=== PATIENT | female | born 1955 | race Caucasian/White ===

== ENCOUNTER 2021-01-08 12:01 | Inpatient (IN) | payer MEDICARE ==
[~2021-01-08] VITALS: Ht 172.7 cm; Wt 150.6 kg
[2021-01-08 14:39] LABS: BASOPHILS ABSOLUTE AUTO 0.03 K/mm3 (0.00-0.23); BASOPHILS PERCENT AUTO 0 % (0-2); EOSINOPHILS ABSOLUTE AUTO 0.05 K/mm3 (0.00-0.68); EOSINOPHILS PERCENT AUTO 0 % (0-6); Hemoglobin 11.1 g/dL (11.5-16.0); IMMATURE GRAN ABSOLUTE AUTO 0.16 K/mm3 (0.00-0.10); IMMATURE GRAN PERCENT AUTO 1 % (0-1); LYMPHOCYTES ABSOLUTE AUTO 0.65 K/mm3 (0.84-5.20); LYMPHOCYTES PERCENT AUTO 4 % (21-46); MONOCYTES ABSOLUTE AUTO 1.56 K/mm3 (0.16-1.47); MONOCYTES PERCENT AUTO 10 % (4-13); Mean Corpuscular HGB 27.9 pg (26.0-34.0); Mean Corpuscular HGB Conc 31.7 g/dL (31.5-36.5); Mean Corpuscular Volume 88 fL (80-100); Mean Platelet Volume 10.8 fL (9.1-12.4); NEUTROPHILS ABSOLUTE AUTO 14.01 K/mm3 (1.96-9.15); NEUTROPHILS PERCENT AUTO 85 % (41-73); Platelet Count 221 K/mm3 (150-400); RDW Coefficient Variation 14.6 % (11.7-14.2); RDW Standard Deviation 47.6 fL (35.1-46.3); Red Blood Cell Count 3.98 M/mm3 (3.80-5.20); White Blood Cell Count 16.46 K/mm3 (4.00-11.30)
[2021-01-08 14:41] LABS: Albumin, Blood 2.6 g/dL (3.4-5.0); Albumin/Globulin Ratio 0.6 (0.8-1.8); Bilirubin, Total 0.9 mg/dL (0.1-1.0); Bun/Creatinine Ratio 23.8 (12.0-20.0); Calcium, Blood 8.7 mg/dL (8.5-10.1); Creatinine, Blood 1.01 mg/dL (0.40-1.00); Globulin, Blood 4.1 g/dL (2.2-4.0); Potassium, Blood 3.6 mmol/L (3.5-5.5); Total Protein, Blood 6.7 g/dL (6.4-8.2)
[2021-01-08] MEDS ORDERED: BUPROPION HCL200 M1 PO (15:04)
[2021-01-08] MEDS ORDERED: CITALOPRAM HBR20 M2 PO (15:04)
[2021-01-08] MEDS ORDERED: ARIPIPRAZOLE10 M1 PO (15:04)
[2021-01-08] MEDS ORDERED: Simvastatin10 MG PO (15:04)
[2021-01-08] MEDS ORDERED: SULFAMETHOXAZO1 EAC1 PO (15:04)
[2021-01-08] MEDS ORDERED: LAMOTRIGINE100 M1 PO (15:04)
[2021-01-08] MEDS ORDERED: XARELTO20 M1 PO (15:05)
[2021-01-08] MEDS ORDERED: SPIRONOLACTONE25 MG PO (15:05)
[2021-01-08] MEDS ORDERED: REPATHA SY140 MG/1 M SC (15:05)
[2021-01-08] MEDS ORDERED: Toprol Xl200 MG PO (15:05)
[2021-01-08] MEDS ORDERED: FUROSEMIDE20 MG PO (15:05)
[2021-01-08] MEDS ORDERED: KLOR-CON 1010 ME2 PO (15:06)
[2021-01-08 15:08] LABS: SARS-Cov-2 (COVID-19) PCR, MMC NEGATIVE (NEGATIVE)
[2021-01-09 03:57] LABS: BASOPHILS ABSOLUTE AUTO 0.03 K/mm3 (0.00-0.23); BASOPHILS PERCENT AUTO 0 % (0-2); EOSINOPHILS PERCENT AUTO 0 % (0-6); Hematocrit 32.7 % (33.0-51.0); IMMATURE GRAN ABSOLUTE AUTO 0.14 K/mm3 (0.00-0.10); IMMATURE GRAN PERCENT AUTO 1 % (0-1); LYMPHOCYTES ABSOLUTE AUTO 0.63 K/mm3 (0.84-5.20); LYMPHOCYTES PERCENT AUTO 5 % (21-46); MONOCYTES ABSOLUTE AUTO 0.74 K/mm3 (0.16-1.47); MONOCYTES PERCENT AUTO 5 % (4-13); Mean Corpuscular HGB 27.3 pg (26.0-34.0); Mean Corpuscular HGB Conc 30.6 g/dL (31.5-36.5); Mean Corpuscular Volume 89 fL (80-100); Mean Platelet Volume 10.4 fL (9.1-12.4); NEUTROPHILS ABSOLUTE AUTO 12.43 K/mm3 (1.96-9.15); NEUTROPHILS PERCENT AUTO 89 % (41-73); Platelet Count 229 K/mm3 (150-400); RDW Coefficient Variation 14.9 % (11.7-14.2); RDW Standard Deviation 48.4 fL (35.1-46.3); Red Blood Cell Count 3.66 M/mm3 (3.80-5.20); White Blood Cell Count 13.97 K/mm3 (4.00-11.30)
[2021-01-09 04:13] LABS: Anion Gap 4 mmol/L (6-16); Blood Urea Nitrogen 22 mg/dL (8-24); Bun/Creatinine Ratio 24.7 (12.0-20.0); CO2, Blood 28 mmol/L (21-32); Calcium, Blood 8.1 mg/dL (8.5-10.1); Chloride, Blood 103 mmol/L (98-108); Creatinine, Blood 0.89 mg/dL (0.40-1.00); Glomerular Filtration Rate >60 (60-); Glucose, Blood 186 mg/dL (70-99); Magnesium, Blood 2.3 mg/dL (1.6-2.4); Potassium, Blood 4.1 mmol/L (3.5-5.5); Sodium, Blood 135 mmol/L (136-145)
--- NOTE | 2021-01-09 05:49 | NUR ---
PT ADMITTED FROM PACU. PLEASANT/COOPERATIVE. NO REQUIREMENTS FOR BIPAP. VSS. TOLERATING IV ABX WELL W/ NO ADVERSE EFFECTS. PACKING IN PLACE FROM SURGERY. PT DENIES PAIN T/O NOC. ASSISTIVE W/ REPOSITIONING. CONCERNS REGARDING NEED FOR POSSIBLE FURTHER SURGERIES. CALL LIGHT WITHIN REACH.
--- NOTE | 2021-01-09 08:30 | NUR ---
SHIFT SUMMARY PT ALERT AND ORIENTED X 4. SHE WAS PLEASANT AND COOPERATIVE W/ CARE. VITAL SIGNS AT 0827 WERE FOLLOWS; BP 113/64, HR 88, RR 16, SPO2 95 ON ROOM AIR. PATIENT STATED THAT WOUND ON LOUANN AREA WAS AT 3/10 PAIN AND OCCURED UPON MOVEMENT. REDNESS NOTED UNDER SKIN FOLDS ON LOWER ABDOMEN; SKIN IS DRY/INTACT. LEFT EYELID DROOP NOTED. PERIPHERAL IV ACCESS IS IN RIGHT ARM. IV IS PATENT AND FLUSHED W/ 10ML SALINE. BED IN LOW, BED ALARM ON, CALL LIGHT IN REACH.
--- NOTE | 2021-01-09 14:30 | NUR ---
THIS RN HAS REVIEWED THE SPENCER, THE NURSING STUDENTS DOCUMENTATION AND AM IN AGREEMENT. DR FRANKLIN AT BEDSIDE THIS AM AND CHANGED TO PACKING AND ABD PAD. NEW ORDERS TO D/C IV FLUIDS AND TRANSFER TO SURGICAL UNIT WITH TELE. REPORT GIVEN TO SURYA HENDERSON ASSUMING CARE OF PT. PT LEFT ROOM AT 1430.
--- NOTE | 2021-01-09 16:08 | NUR ---
ASSUMING CARE PATIENT A TRANSFER TO UNIT FROM PCU. POD 1 I&D LEFT LABIA, FOURNIERS GANGRENE. SCHMITZ IN PLACE. DRESSING IN PLACE. PLAN TO RETURN TO OR WITH DR FRANKLIN ON 01/10/2021 FOR REPEAT I&D. PATIENT ALERT AND ORIENTED. TOLERATING REGULAR DIET. WILL BE NPO AFTER MIDNIGHT.
--- NOTE | 2021-01-09 17:10 | NUR ---
SHIFT SUMMARY PATIENT ALERT AND ORIENTED. RESTING IN BED AT THIS TIME. TOLERATING REGULAR DIET. DENIES PAIN. SCHMITZ INTACT. NPO AT MIDNIGHT FOR I&D TOMORROW. WILL REPORT TO RETAIL LOAN ORIGINATOR ASSISTANT RN.
--- NOTE | 2021-01-10 06:35 | NUR ---
SHIFT SUMMARY LYING IN LOW FOWLERS WITH EYES CLOSED, HAS RESTED WELL THIS SHIFT. AAO X4, ANDREWS, FOLLOWS ALL COMMANDS. GIVE PRN PAIN MEDS PER EMAR. SCHMITZ REMAINS IN PLACE. DRESSING TO GROIN/PERIAREA REMAINS INTACT. HAS BEEN NPO SINCE MO FOR 2ND I&D THIS AM. LEFT AC 18G PIV IS PATENT, INFUSING NS AT TKO. NO SIGNIFICANT CHANGES NOTED THIS SHIFT. DENIES PAIN, DISCOMFORT, OR FURTHER NEEDS AT THIS TIME. SAFETY MEASURES IN PLACE. WILL CONTINUE TO MONITOR AND ADDRESS CHANGES AND NEEDS THEY ARISE. WILL GIVE HAND OFF TO ONCOMING SHIFT USING SBAR DURING BEDSIDE REPORT.
--- NOTE | 2021-01-10 06:55 | NUR ---
V TACH 7 BEAT RUN OF V TACH REPORTED BY ELIZABETH LAKE. PT IS RESTING WITH EYES CLOSED. DENIES ANY PAIN OR DISCOMFORT. SAFETY MEASURES IN PLACE. WILL CONTIUE TO MONITOR AND ADDRESS CHANGES AND CONCERNS THEY ARISE.
--- NOTE | 2021-01-10 08:11 | NUR ---
PT LEFT FOR UR WITH PREOP NURSES. METOPROLOL HELD PER ANESTHESIA ACCORDING TO PREOP NURSES.
--- NOTE | 2021-01-10 09:08 | NUR ---
01/10/21 0908 NELLNORA MURPHY PT RECEIVED SCHEDULED DOSE OF ANTIBIOTICS PRIOR TO PROCEDURE PER DR ORDERS.
--- NOTE | 2021-01-10 11:57 | NUR ---
0735-recvd report from previous shift rn Josi, pt awake/oriented, lying in bed which is in lowest position, call light within reach, bed rails up x 2, denies pain at this time. 0800-pt transported on own bed to daysurgery for surgical intervention 1100-pt transported back to room on own bed, a/o x 4, pleasant/cooperative, denies pain, states to "soreness", denies need for analgesia per mar at this time. post op vs commenced and stable, 6l NC with spo2 at 100%, decrease to 2l at 96%, will reevaluate in one hr. operative site L labia with gauze and abd dressing, will change as needed. RICK drain not compressed, per MD this is expected as drain is place where tissue is not completely closed, has gauze packing. pt tolerating PO intake, denies n/v, has call family
--- NOTE | 2021-01-10 18:24 | NUR ---
SHIFT SUMMARY; VSS, NO ACUTE CHANGES THIS SHIFT. FOLLOWING I&D OF R LABIA WOUND, PT HAS TOLERATED PO INTAKE WELL WITH NO N/V REPORT. PT DENIES NEED FOR PAIN MEDICATION ON PAIN ASSESSMENTS. SCHMITZ CATHETER PATENT/DRAINING CLEAR TEA URINE. ENCOURAGED PT TO INCREASED FLUIDS INTAKE. PT STOOD AND WALKED AROUND ROOM. DRESSING LAST PUTTER AWAY WOUND R LABIA, OPEN FOLLOWIGN PROCEDURE WITH DRAIN WICK. DR FRANKLIN WILL REMOVE TOMORROW. KERLEX GAUZE AND IODIFORM PLACE OVER WOUND.
[2021-01-11 05:13] LABS: BASOPHILS ABSOLUTE AUTO 0.03 K/mm3 (0.00-0.23); BASOPHILS PERCENT AUTO 0 % (0-2); EOSINOPHILS ABSOLUTE AUTO 0.07 K/mm3 (0.00-0.68); EOSINOPHILS PERCENT AUTO 1 % (0-6); Hematocrit 31.2 % (33.0-51.0); Hemoglobin 9.5 g/dL (11.5-16.0); IMMATURE GRAN PERCENT AUTO 1 % (0-1); LYMPHOCYTES ABSOLUTE AUTO 1.47 K/mm3 (0.84-5.20); LYMPHOCYTES PERCENT AUTO 19 % (21-46); MONOCYTES ABSOLUTE AUTO 0.81 K/mm3 (0.16-1.47); MONOCYTES PERCENT AUTO 11 % (4-13); Mean Corpuscular HGB 28.2 pg (26.0-34.0); Mean Corpuscular HGB Conc 30.4 g/dL (31.5-36.5); Mean Corpuscular Volume 93 fL (80-100); Mean Platelet Volume 9.7 fL (9.1-12.4); NEUTROPHILS ABSOLUTE AUTO 5.21 K/mm3 (1.96-9.15); NEUTROPHILS PERCENT AUTO 68 % (41-73); Platelet Count 236 K/mm3 (150-400); RDW Coefficient Variation 15.1 % (11.7-14.2); RDW Standard Deviation 51.1 fL (35.1-46.3); Red Blood Cell Count 3.37 M/mm3 (3.80-5.20); White Blood Cell Count 7.69 K/mm3 (4.00-11.30)
[2021-01-11 05:37] LABS: Anion Gap 4 mmol/L (6-16); Blood Urea Nitrogen 22 mg/dL (8-24); Bun/Creatinine Ratio 25.1 (12.0-20.0); CO2, Blood 29 mmol/L (21-32); Calcium, Blood 8.4 mg/dL (8.5-10.1); Chloride, Blood 105 mmol/L (98-108); Creatinine, Blood 0.88 mg/dL (0.40-1.00); Glomerular Filtration Rate >60 (60-); Glucose, Blood 96 mg/dL (70-99); Magnesium, Blood 2.3 mg/dL (1.6-2.4); Phosphorus, Blood 3.4 mg/dL (2.5-4.9); Potassium, Blood 4.1 mmol/L (3.5-5.5); Sodium, Blood 138 mmol/L (136-145)
--- NOTE | 2021-01-11 05:51 | NUR ---
A/OX4. VSS ON RA. LABIAL DRESSING CHANGED AFTER PT HAD BM. TYLENOL GIVEN FOR DISCOMFORT. DENIES SOB AND CP. SINUS TACH ON TELE. AMBULATED TO TOILET W/ FWW. SLEEPING B/W CARE. USING CALL LIGHT TO MAKE NEEDS KNOWN.
--- NOTE | 2021-01-11 13:16 | NUR ---
01/11/21 1316 Keena Cruz VERIFICATIONS: EDIT CHART.
--- NOTE | 2021-01-11 18:28 | NUR ---
SHIFT SUMMARY S/P I&D OF R LABIA. PACKED W/ SILVER Ag. & KERLEX W/ ABD COVERING. RICK TO LOWER R LABIA DRAINING SANG FLUID. SCHMITZ IN PLACE AND DRAINING DARK YELLOW URINE. VSS, PT UP TO CHAIR AND AMBULATING WELL T/O SHIFT, COOPERATIVE W/ STAFF. CALL LIGHT IN REACH, WILL CONTINUE TO MONITOR.
--- NOTE | 2021-01-12 00:22 | NUR ---
PT CALLED STATING THAT HER IV WAS "ITCHING". UPON EXAMINATION, A SMALL, CIRCULAR RAISED SPOT WAS VISUALIZED ON HER LEFT INNER WRIST, MILDLY ERYTHEMATOUS. SHE STATED THAT IT WAS ITCHY, BUT DENIED ANY TOPICAL ALLERGIES. THE AREA WAS CLEANSED AND THE IV DRESSING CHANGED.
--- NOTE | 2021-01-12 06:47 | NUR ---
SHIFT SUMMARY: DAVIE IS A&OX4. VSS, NO ACUTE EVENTS OVERNIGHT. OUTER LAYER OF DRESSING CHANGED. RICK DRAINING SMALL AMOUNT OF SS FLUID. SCHMITZ PATENT. SHE IS TOLERATING PO INTAKE WELL, USES THE CALL LIGHT APPROPRIATELY. IV X 2 PATENT. SHE REPORTS ADEQUATE PAIN CONTROL WHEN LAYING, STATES THAT SITTING UP IN THE CHAIR IS VERY PAINFUL. SHE IS LAYING IN BED WITH THE CALL LIGHT IN REACH. WILL REPORT TO DAY SHIFT RN.
--- NOTE | 2021-01-12 17:05 | NUR ---
SHIFT SUMMARY S/P I&D OF R LABIA. SILVER Ag. & KERLEX PACKING IN PLACE W/ ABD COVERING. RICK DRAIN, DRAINING BRIGHT RED. SCHMITZ IN PLACE DRAINING DARK YELLOW URINE. VSS. PT IS AMBULATING TO BATHROOM AND HALLWAYS WELL. REPORTS MINIMAL PAIN T/O SHIFT EXCEPT PAINFUL WHEN SITTING UP & DURING DRSG CHANGE. CALL LIGHT WITHIN REACH, WILL CONTINUE TO MONITOR.
--- NOTE | 2021-01-13 07:17 | NUR ---
SUMMARY NO ACUTE CHANGES.MINIMAL DISCOMFORT REPORTED.
[2021-01-13 16:08] LABS: SARS-Cov-2 (COVID-19) PCR, MMC NEGATIVE (NEGATIVE)
--- NOTE | 2021-01-13 16:30 | NUR ---
TRANSFER TO SNF: REPORT GIVEN TO RNRYAN AT [facility] AT THIS TIME. WOUND CARE INSTRUCTIONS GIVEN. RICK SCHMITZ DRAIN AND IV'S TO STAY IN PLACE UPON TRANSFER PER DR. FRANKLIN AND DR. ORANTES. AWAITING TRANSPORT AT THIS TIME
--- NOTE | 2021-01-13 18:09 | NUR ---
TRANSFER: [facility] TRANSP[facility] HERE AT 1805, DISCHARGE PACKET GIVEN TO TRANSPORTER AND PT LEFT VIA WHEELCHAIR AT ABOUT 1810
== END 2021-01-13 18:06 | DRG 854 ==
LOC: ER 12:01 → SURS 16:08 → PCU 19:47 → SURS 01-09 16:03
PROVIDERS: Internal Medicine; Physician Assistant; Surgery; ADMIT Internal Medicine
PROC: 0JBB0ZZ Excision of Perineum Subcutaneous Tissue and Fascia, Open Approach (ICD-10-PCS; principal; 2021-01-08 16:30)
DX: A41.9 Sepsis, unspecified organism (principal); I42.2 Other hypertrophic cardiomyopathy; Z68.43 Body mass index [BMI] 50.0-59.9, adult; Z20.822 Contact with and (suspected) exposure to COVID-19; N76.89 Other specified inflammation of vagina and vulva; R65.20 Severe sepsis without septic shock; I10 Essential (primary) hypertension; I48.91 Unspecified atrial fibrillation; F32.9 Major depressive disorder, single episode, unspecified; F41.9 Anxiety disorder, unspecified; E78.5 Hyperlipidemia, unspecified; E66.01 Morbid (severe) obesity due to excess calories; Z90.710 Acquired absence of both cervix and uterus; Z98.890 Other specified postprocedural states; Z88.1 Allergy status to other antibiotic agents; Z79.01 Long term (current) use of anticoagulants; Z79.899 Other long term (current) drug therapy
CPT/HCPCS: 36415; 74177; 80048; 80053; 83605; 83735; 84100; 84443; 85025; 86850; 86900; 86901; 87040; 87070; 87075; 87205; 93005; 93010; 94660; 94762; 96365-59; 96367; 97110; 97116; 97162; 97166; 97530; 97535; 99285-25; A9270; J0330; J1100; J1650; J1885; J2405; J2543; J2704; J3010; J3370; J7030; J7050; J7120; Q9967; U0004

== ENCOUNTER → 2021-03-21 | Outpatient (CLI) | payer MEDICARE ==
[~2021-03-21] MED LIST: ARIPIPRAZOLE10 M1 PO; BUPROPION HCL200 M1 PO; CITALOPRAM HBR20 M2 PO; FUROSEMIDE20 MG PO; KLOR-CON 1010 ME2 PO; LAMOTRIGINE100 M1 PO; REPATHA SY140 MG/1 M SC; SPIRONOLACTONE25 MG PO; SULFAMETHOXAZO1 EAC1 PO; Simvastatin10 MG PO; Toprol Xl200 MG PO; XARELTO20 M1 PO
[2021-03-22 15:08] LABS: HPV 16 Negative (Negative); HPV 18 Negative (Negative); HPV OTHER HR TYPES Negative (Negative)
== END | disposition home or self-care (01) ==
LOC: LAB 10:30 → LAB SHORT 10:30
PROVIDERS: Family Medicine
DX: Z01.419 Encounter for gynecological examination (general) (routine) without abnormal findings (principal); Z88.1 Allergy status to other antibiotic agents
CPT/HCPCS: 87624; G0123

== ENCOUNTER 2021-08-23 15:40 | Inpatient (IN) | payer MEDICARE, OTHER ==
[~2021-08-23] VITALS: Ht 172.7 cm; Wt 158.8 kg
[2021-08-23 16:41] LABS: BASOPHILS ABSOLUTE AUTO 0.05 K/mm3 (0.00-0.23); BASOPHILS PERCENT AUTO 1 % (0-2); EOSINOPHILS PERCENT AUTO 1 % (0-6); Hematocrit 41.5 % (33.0-51.0); Hemoglobin 12.2 g/dL (11.5-16.0); IMMATURE GRAN ABSOLUTE AUTO 0.02 K/mm3 (0.00-0.10); IMMATURE GRAN PERCENT AUTO 0 % (0-1); LYMPHOCYTES ABSOLUTE AUTO 0.57 K/mm3 (0.84-5.20); LYMPHOCYTES PERCENT AUTO 7 % (21-46); MONOCYTES PERCENT AUTO 12 % (4-13); Mean Corpuscular HGB 25.6 pg (26.0-34.0); Mean Corpuscular HGB Conc 29.4 g/dL (31.5-36.5); Mean Corpuscular Volume 87 fL (80-100); Mean Platelet Volume 10.4 fL (9.1-12.4); NEUTROPHILS ABSOLUTE AUTO 6.67 K/mm3 (1.96-9.15); NEUTROPHILS PERCENT AUTO 79 % (41-73); Platelet Count 196 K/mm3 (150-400); RDW Coefficient Variation 17.1 % (11.7-14.2); RDW Standard Deviation 54.3 fL (35.1-46.3); Red Blood Cell Count 4.76 M/mm3 (3.80-5.20); White Blood Cell Count 8.41 K/mm3 (4.00-11.30)
[2021-08-23 17:10] LABS: Albumin, Blood 3.5 g/dL (3.4-5.0); Albumin/Globulin Ratio 1.2 (0.8-1.8); Bilirubin, Total 1.6 mg/dL (0.1-1.0); Bun/Creatinine Ratio 23.4 (12.0-20.0); Calcium, Blood 8.7 mg/dL (8.5-10.1); Creatinine, Blood 1.07 mg/dL (0.40-1.00); Globulin, Blood 2.9 g/dL (2.2-4.0); Total Protein, Blood 6.4 g/dL (6.4-8.2)
[2021-08-23 22:07] LABS: Troponin I 0.053 ng/mL (0.000-0.040)
[2021-08-23 23:40] LABS: CHOL/HDL RATIO 2.3; Cholesterol 126 mg/dL (50-200); HDL Cholesterol 55 mg/dL (>39); Low Density Lipoprotein Chol 53 mg/dL (0-110); Triglycerides 90 mg/dL (30-160); Very Low Density Lipoprot Chol 18 mg/dL (6-32)
[2021-08-24 04:37] LABS: BASOPHILS ABSOLUTE AUTO 0.05 K/mm3 (0.00-0.23); BASOPHILS PERCENT AUTO 1 % (0-2); EOSINOPHILS ABSOLUTE AUTO 0.09 K/mm3 (0.00-0.68); EOSINOPHILS PERCENT AUTO 1 % (0-6); Hematocrit 38.4 % (33.0-51.0); Hemoglobin 11.1 g/dL (11.5-16.0); IMMATURE GRAN ABSOLUTE AUTO 0.01 K/mm3 (0.00-0.10); IMMATURE GRAN PERCENT AUTO 0 % (0-1); LYMPHOCYTES ABSOLUTE AUTO 0.94 K/mm3 (0.84-5.20); LYMPHOCYTES PERCENT AUTO 15 % (21-46); MONOCYTES ABSOLUTE AUTO 1.06 K/mm3 (0.16-1.47); MONOCYTES PERCENT AUTO 16 % (4-13); Mean Corpuscular HGB 25.4 pg (26.0-34.0); Mean Corpuscular HGB Conc 28.9 g/dL (31.5-36.5); Mean Corpuscular Volume 88 fL (80-100); Mean Platelet Volume 10.2 fL (9.1-12.4); NEUTROPHILS ABSOLUTE AUTO 4.33 K/mm3 (1.96-9.15); NEUTROPHILS PERCENT AUTO 67 % (41-73); Platelet Count 178 K/mm3 (150-400); RDW Coefficient Variation 17.1 % (11.7-14.2); RDW Standard Deviation 54.6 fL (35.1-46.3); Red Blood Cell Count 4.37 M/mm3 (3.80-5.20); White Blood Cell Count 6.48 K/mm3 (4.00-11.30)
[2021-08-24 05:05] LABS: Albumin, Blood 3.1 g/dL (3.4-5.0); Albumin/Globulin Ratio 1.1 (0.8-1.8); Bilirubin, Total 1.5 mg/dL (0.1-1.0); Bun/Creatinine Ratio 21.8 (12.0-20.0); Calcium, Blood 8.7 mg/dL (8.5-10.1); Creatinine, Blood 1.1 mg/dL (0.40-1.00); Globulin, Blood 2.9 g/dL (2.2-4.0); Potassium, Blood 3.7 mmol/L (3.5-5.5)
--- NOTE | 2021-08-24 06:11 | NUR ---
PATIENT A&O X4. POOR HISTORIAN. NEEDS EDUCATION ON DIET AND MEDICAL CONDITIONS. PATIENTS SKIN FOLDS ARE RED AND RAW UNDER BREASTS, IN GROIN, AND UNDER ABDOMINAL PANNUS. PATIENTS LOWER EXTREMITIES ARE DISCOLORED AND EDEMETOUS. PATIENT CAN AMBULATE BUT IS WEAK AND SLOW. HAS HAD SEVERAL FALLS AT HOME. VITALS REVIEWED CALL LIGHT IN REACH.
--- NOTE | 2021-08-24 18:41 | NUR ---
SUMMARY- PT ALERT/O X3 THIS AM. PM BECAME CONFUSED AFTER AWAKING FROM [facility] AND THOUGHT IT WAS THE MORNING. DIURESING TODAY, HAD LG VOIDS, X2 INCONT RELATED TO URGENCY. PT TOLERATING FOOD AND FLUIDS. GLUCOSE CHECKS AND COVERAGE WITH SSRI. GOT UP TO BSC INDEPENDANT AND AMBULATED IN ROOM SBA GOOD STRENGTH AND GAIT. PLAN TO DC HOME WITH HH AND BATH AID. YEAST UNDER L BREAST FIREY RED AND EXCORIATED. L AXILLA AND GROIN, FOUL SMELLING AND POOR HYGIENE, CLEANSED, APPLIED CLOTRIAMAZOLE CREAM TO RED RASHED AREAS..
--- NOTE | 2021-08-25 04:55 | NUR ---
PATIENT WAS AWAKE AT START OF SHIFT. SHE REPORTED THAT SHE HAD BEEN GIVEN LASIX AND HAD TO HAVE HER BED CHANGED SEVERAL TIMES. i REASSURED THE PATIENT THAT WE DIDN'T MIND HELPING TAKE CARE OF HER. CLEASED SKIN FOLDS AND APPLIED CLOTRIMAZOLE CREAM. DISCUSSED DISCHARGE PLAN FOR TOMMORROW. VITALS REVIEWED CALL LIGHT IN REACH.
[2021-08-25 05:15] LABS: Bun/Creatinine Ratio 21.1 (12.0-20.0); Calcium, Blood 8.9 mg/dL (8.5-10.1); Potassium, Blood 3.7 mmol/L (3.5-5.5)
--- NOTE | 2021-08-25 19:28 | NUR ---
SUMM- PT AMBULATES TO COMMODE AND BATHROOM SBA WITH WALKER. STEADY ON FEET WITH GOOD STRENGTH. BED BATH TODAY WITH THOROUGH CLEANSING OF SKIN FOLDS. NYSTATIN TO REDDENED YEAST AREAS. TOLERATING CARDIAC DIET AND FLUID RESTRICTION DIET. DIURESING WITH IV LASIX. OCC STRESS INCONT. PLAN FOR HOME TOMORROW WITH BATH AID AND HOME CONT CASE MAN ASSIST.
--- NOTE | 2021-08-26 | NUR ---
PT RESTING QUIETLY AT THIS TIME. NO NEEDS AT THIS TIME. CALL LT IN REACH.
--- NOTE | 2021-08-26 03:55 | NUR ---
SHIFT SUMMARY: MEDICATED PT WITH TYLENOL ONCE FOR LEFT HIP PAIN. PT DIURESING WELL, UP TO THE BSC WITH FWW AND SBA T/O SHIFT. A/O AND PLEASANT. ON RA. ANTIFUNGAL CREAM APPLIED TO PANNUS, UNDER BREASTS, LEFT AXILLA AND GROIN AREA, NO FOUL ODOR PRESENT, AREAS ARE RED,MOIST AND HEALING. NO ACUTE CHANGES. WILL CONTINUE TO PROVIDE CARE UNTIL SHIFT REPORT.
[2021-08-26 05:52] LABS: Bun/Creatinine Ratio 19.6 (12.0-20.0); Calcium, Blood 8.9 mg/dL (8.5-10.1); Creatinine, Blood 1.12 mg/dL (0.40-1.00)
[2021-08-26] MEDS ORDERED: FURO40 PO (13:38)
--- NOTE | 2021-08-26 16:22 | NUR ---
PT AWAKE AT START OF SHIFT. PLEASANT AND CO-OP WITH CARE. A&O, [facility]. PT HAS SOME INCONTINENCE OF URINE WITH URGENCY. MORBIDLY OBESE, BUT NORMALLY INDEPENDENT AT HOME. ADMITTED FOR CHF AND C/O SOB WITH ACTIVITY. PT REPORTED BREATHING MUCH BETTER AFTER LASIX. PT MEDICALLY STABLE FOR D/C. HOME O2 EVAL DONE; PT NOT NEEDING O2. D/C ORDERS PLACED, INSTRUCTIONS REVIEWED WITH PT. MEDS FAXED TO [facility] PER PT REQUEST. NO C/O. PT ASSISTED OUT TO CAR VIA W/C, BELONGINGS IN HAND.
== END 2021-08-26 14:27 | disposition home health service (06) | DRG 280 ==
LOC: ER 15:40 → MEDS 23:37 → ERHOLD 23:37 → MEDS 08-24 01:27
PROVIDERS: Family Medicine; Physician Assistant; Student in an Organized Health Care Education/Training Program; ADMIT Family Medicine
DX: I11.0 Hypertensive heart disease with heart failure (principal); I50.31 Acute diastolic (congestive) heart failure; I21.A1 Myocardial infarction type 2; Z68.43 Body mass index [BMI] 50.0-59.9, adult; N17.9 Acute kidney failure, unspecified; F32.A Depression, unspecified; I42.2 Other hypertrophic cardiomyopathy; I73.9 Peripheral vascular disease, unspecified; B37.2 Candidiasis of skin and nail; I27.20 Pulmonary hypertension, unspecified; I48.0 Paroxysmal atrial fibrillation; I87.2 Venous insufficiency (chronic) (peripheral); E66.01 Morbid (severe) obesity due to excess calories; E78.5 Hyperlipidemia, unspecified; Z90.89 Acquired absence of other organs; Z90.710 Acquired absence of both cervix and uterus; Z88.1 Allergy status to other antibiotic agents; Z79.01 Long term (current) use of anticoagulants; Z79.899 Other long term (current) drug therapy; Z23 Encounter for immunization
CPT/HCPCS: 36415; 70450; 71045; 80048; 80053; 80061; 83880; 84484; 85025; 90686; 93005; 93010; 93306; 93925; 93970; 94760; 94761; 96374; 97110; 97162; 97166; 97530; 97535; 99285-25; A9270; G0008; J1940

== ENCOUNTER 2021-09-14 19:55 | Emergency (ER) | payer MEDICARE, OTHER ==
[~2021-09-14] VITALS: Ht 172.7 cm; Wt 149.7 kg
[~2021-09-14 19:55] MED LIST changes: +FURO40 PO; +Robaxin750 MG PO; +TRAM50 PO
[2021-09-14 20:58] LABS: BASOPHILS ABSOLUTE AUTO 0.06 K/mm3 (0.00-0.23); BASOPHILS PERCENT AUTO 1 % (0-2); EOSINOPHILS ABSOLUTE AUTO 0.07 K/mm3 (0.00-0.68); EOSINOPHILS PERCENT AUTO 1 % (0-6); Hematocrit 39.5 % (33.0-51.0); Hemoglobin 11.4 g/dL (11.5-16.0); IMMATURE GRAN ABSOLUTE AUTO 0.03 K/mm3 (0.00-0.10); IMMATURE GRAN PERCENT AUTO 0 % (0-1); LYMPHOCYTES ABSOLUTE AUTO 0.83 K/mm3 (0.84-5.20); LYMPHOCYTES PERCENT AUTO 9 % (21-46); MONOCYTES ABSOLUTE AUTO 1.49 K/mm3 (0.16-1.47); MONOCYTES PERCENT AUTO 16 % (4-13); Mean Corpuscular HGB 25.2 pg (26.0-34.0); Mean Corpuscular HGB Conc 28.9 g/dL (31.5-36.5); Mean Corpuscular Volume 87 fL (80-100); Mean Platelet Volume 10.2 fL (9.1-12.4); NEUTROPHILS ABSOLUTE AUTO 6.92 K/mm3 (1.96-9.15); NEUTROPHILS PERCENT AUTO 74 % (41-73); Platelet Count 255 K/mm3 (150-400); RDW Coefficient Variation 18.6 % (11.7-14.2); RDW Standard Deviation 57.1 fL (35.1-46.3); Red Blood Cell Count 4.52 M/mm3 (3.80-5.20)
[2021-09-14 21:11] LABS: Albumin, Blood 3.4 g/dL (3.4-5.0); Albumin/Globulin Ratio 1.1 (0.8-1.8); Bilirubin, Total 2.4 mg/dL (0.1-1.0); Bun/Creatinine Ratio 23.7 (12.0-20.0); Calcium, Blood 9.4 mg/dL (8.5-10.1); Creatinine, Blood 1.52 mg/dL (0.40-1.00); Globulin, Blood 3.2 g/dL (2.2-4.0); Potassium, Blood 4.3 mmol/L (3.5-5.5); Total Protein, Blood 6.6 g/dL (6.4-8.2)
[2021-09-14 22:16] LABS: Blood, Urine 5+ (Neg); Glucose Qualitative, Urine Neg (Neg); Ketones, Urine 1+ (Neg); Leukocyte Esterase, Urine 2+ (Neg); Nitrite, Urine Pos (Neg); Protein, Urine 3+ (Neg); Source, Urine Straight Cath; Specific Gravity, Urine 1.025 (1.003-1.022); Urobilinogen, Urine 2+ (Normal)
[2021-09-14 23:23] LABS: Bilirubin, Urine 1+ (Neg)
[2021-09-14 23:31] LABS: Appearance, Urine Cloudy (Clear); Color, Urine Amber (P-Yellow)
[2021-09-14 23:33] LABS: Amorphous Light (0-Heavy); Bacteria Many /hpf; Red Blood Cells, Urine TNTC /hpf (0-2); Squamous Epithelial Cells Few /hpf (Few); White Blood Cells, Urine 25-50 /hpf (0-5)
[2021-09-15] MEDS ORDERED: LEVOFLOXACIN250 M1 PO (00:14)
== END 2021-09-15 01:51 | disposition home or self-care (01) ==
LOC: ER 19:55
PROVIDERS: Emergency Medicine
DX: N30.90 Cystitis, unspecified without hematuria (principal); N39.0 Urinary tract infection, site not specified; I48.91 Unspecified atrial fibrillation
CPT/HCPCS: 36415; 71045; 80053; 81001; 85025; 87077; 87086; 87186; 93005; 93010; J1956; J7030; P9612

== ENCOUNTER 2021-12-04 13:57 | Observation (INO) | payer MEDICARE, OTHER ==
[~2021-12-04] VITALS: Ht 172.7 cm; Wt 156.5 kg
[~2021-12-04 13:57] MED LIST changes: +BUPR150ER PO; -BUPROPION HCL200 M1 PO; +DOXY100 PO; +LEVOFLOXACIN250 M1 PO
[2021-12-04 14:35] LABS: BASOPHILS ABSOLUTE AUTO 0.07 K/mm3 (0.00-0.23); BASOPHILS PERCENT AUTO 1 % (0-2); EOSINOPHILS ABSOLUTE AUTO 0.07 K/mm3 (0.00-0.68); EOSINOPHILS PERCENT AUTO 1 % (0-6); Hematocrit 38.8 % (33.0-51.0); IMMATURE GRAN ABSOLUTE AUTO 0.01 K/mm3 (0.00-0.10); IMMATURE GRAN PERCENT AUTO 0 % (0-1); LYMPHOCYTES ABSOLUTE AUTO 0.79 K/mm3 (0.84-5.20); LYMPHOCYTES PERCENT AUTO 12 % (21-46); MONOCYTES ABSOLUTE AUTO 0.93 K/mm3 (0.16-1.47); MONOCYTES PERCENT AUTO 14 % (4-13); Mean Corpuscular HGB Conc 28.4 g/dL (31.5-36.5); Mean Corpuscular Volume 81 fL (80-100); Mean Platelet Volume 10.8 fL (9.1-12.4); NEUTROPHILS ABSOLUTE AUTO 4.85 K/mm3 (1.96-9.15); NEUTROPHILS PERCENT AUTO 72 % (41-73); Platelet Count 188 K/mm3 (150-400); RDW Coefficient Variation 18.8 % (11.7-14.2); RDW Standard Deviation 54.8 fL (35.1-46.3); Red Blood Cell Count 4.78 M/mm3 (3.80-5.20); White Blood Cell Count 6.72 K/mm3 (4.00-11.30)
[2021-12-04 14:53] LABS: Albumin, Blood 3.4 g/dL (3.4-5.0); Bilirubin, Total 1.5 mg/dL (0.1-1.0); Bun/Creatinine Ratio 19.3 (12.0-20.0); Calcium, Blood 9.3 mg/dL (8.5-10.1); Creatinine, Blood 1.09 mg/dL (0.40-1.00); Globulin, Blood 3.3 g/dL (2.2-4.0); Potassium, Blood 4.5 mmol/L (3.5-5.5); Total Protein, Blood 6.7 g/dL (6.4-8.2)
--- NOTE | 2021-12-04 19:04 | NUR ---
PATIENT ADMITTED TO MEDICAL AT 1820. Pt admitted to medical for SOB, fluid overload. Diuresed in ED, purewick in place. Pt on 4L O2, SOB with activity. Vitals stable, HR aguila. Tele in place. AOx3, med rec completed, but pt unable to remember all meds. Will pass along to next nurse if CM can contact [facility] for updated Med list. Skin check complete, no skin issues noted, pt reports yeast/groin, skin intact no redness, moisture observed.
--- NOTE | 2021-12-05 03:50 | NUR ---
LIQUOR BRIDGE OPERATOR HELPER SUMMARY MEDICATION LIST DISCUSSED WITH PT, TOLERATED HS MEDS WELL. PUREWICK IN USE AFTER CHANGING PT. OVER 4000 CC OUT SINCE SHIFT COMMENCE. MAX ASSIST TO REPOSITION PT DUE TO OBESITY. ALERT AND ORIENTED. HAS BEEN RSTING QUIETLY WITH FEW INTERRUPTIONS SINCE HS. CALL LIGHT IN REACH. VSS. RAILS UP X 3. NO NOTED S/S ACUTE DISTRESS AT THIS TIME. WILL CONTINUE TO MONITOR.
[2021-12-05 05:40] LABS: BASOPHILS ABSOLUTE AUTO 0.05 K/mm3 (0.00-0.23); BASOPHILS PERCENT AUTO 1 % (0-2); EOSINOPHILS ABSOLUTE AUTO 0.14 K/mm3 (0.00-0.68); EOSINOPHILS PERCENT AUTO 3 % (0-6); Hematocrit 36.2 % (33.0-51.0); Hemoglobin 10.1 g/dL (11.5-16.0); IMMATURE GRAN ABSOLUTE AUTO 0.02 K/mm3 (0.00-0.10); IMMATURE GRAN PERCENT AUTO 0 % (0-1); LYMPHOCYTES ABSOLUTE AUTO 0.63 K/mm3 (0.84-5.20); LYMPHOCYTES PERCENT AUTO 11 % (21-46); MONOCYTES ABSOLUTE AUTO 0.89 K/mm3 (0.16-1.47); MONOCYTES PERCENT AUTO 16 % (4-13); Mean Corpuscular HGB 22.6 pg (26.0-34.0); Mean Corpuscular HGB Conc 27.9 g/dL (31.5-36.5); Mean Corpuscular Volume 81 fL (80-100); Mean Platelet Volume 10.1 fL (9.1-12.4); NEUTROPHILS ABSOLUTE AUTO 3.88 K/mm3 (1.96-9.15); NEUTROPHILS PERCENT AUTO 69 % (41-73); Platelet Count 155 K/mm3 (150-400); RDW Coefficient Variation 18.8 % (11.7-14.2); RDW Standard Deviation 55.5 fL (35.1-46.3); Red Blood Cell Count 4.46 M/mm3 (3.80-5.20); White Blood Cell Count 5.61 K/mm3 (4.00-11.30)
[2021-12-05 06:21] LABS: Albumin, Blood 2.9 g/dL (3.4-5.0); Bilirubin, Total 1.4 mg/dL (0.1-1.0); Bun/Creatinine Ratio 18.4 (12.0-20.0); Calcium, Blood 8.7 mg/dL (8.5-10.1); Creatinine, Blood 1.03 mg/dL (0.40-1.00); Globulin, Blood 2.9 g/dL (2.2-4.0); Total Protein, Blood 5.8 g/dL (6.4-8.2)
--- NOTE | 2021-12-05 17:09 | NUR ---
SHIFT SUMMARY: PT. A&OX4, COOPERATIVE W/ CARE. AFTER PHYSICAL THERAPY, PT BEGAN GETTING OUT OF BED 1-2P TX TO [facility]. PT. HAD A HOME EVAL FOR AND IS BEING SENT HOME ON 2 L NC. PT. BEING D/C'D BACK TO [facility]. PT. APPROPRIATLY DIURESED.
--- NOTE | 2021-12-05 17:46 | NUR ---
PT. D/C'D TO [facility] DC PAPERWORK AND PT. BELONGINGS GIVEN TO TRANSPORT.
== END 2021-12-05 17:44 ==
LOC: ER 13:57 → MEDS 13:58
PROVIDERS: Student in an Organized Health Care Education/Training Program; ADMIT Internal Medicine
DX: J96.01 Acute respiratory failure with hypoxia (principal); I11.0 Hypertensive heart disease with heart failure; I50.31 Acute diastolic (congestive) heart failure; I48.91 Unspecified atrial fibrillation; Z79.01 Long term (current) use of anticoagulants; I42.1 Obstructive hypertrophic cardiomyopathy; I27.20 Pulmonary hypertension, unspecified; R53.81 Other malaise; Z88.1 Allergy status to other antibiotic agents; E66.9 Obesity, unspecified; Z68.43 Body mass index [BMI] 50.0-59.9, adult
CPT/HCPCS: 36415; 71045; 80053; 83880; 84484; 85025; 93005; 93010; 93306; 94644; 94664; 94761; 96375; 97110; 97162; A9270; G0378; J1940; J2405

== ENCOUNTER 2022-02-15 20:59 | Emergency (ER) | payer MEDICARE, OTHER ==
[~2022-02-15] VITALS: Ht 170.2 cm; Wt 149.2 kg
== END 2022-02-16 01:29 | disposition home or self-care (01) ==
LOC: ER 20:59
DX: S09.90XA Unspecified injury of head, initial encounter (principal); S81.812A Laceration without foreign body, left lower leg, initial encounter; I11.0 Hypertensive heart disease with heart failure; I50.9 Heart failure, unspecified; Z79.899 Other long term (current) drug therapy; W18.30XA Fall on same level, unspecified, initial encounter
CPT/HCPCS: 70450; 72125; 73590; 90714